=== PATIENT | male | born 1965 | race African-American/Black ===

== ENCOUNTER 2019-11-10 07:43 | Emergency (ER) | payer OTHER ==
[~2019-11-10] VITALS: Ht 175.3 cm; Wt 88.5 kg
[2019-11-10] MEDS ORDERED: ZITHROMAX500 MG PO (11:06)
[2019-11-10] MEDS ORDERED: TUSSI PRES-B L480 ML PO (11:06)
== END 2019-11-10 11:21 | disposition home or self-care (01) ==
LOC: ER 07:43
DX: B33.8 Other specified viral diseases (principal); B96.0 Mycoplasma pneumoniae [M. pneumoniae] as the cause of diseases classified elsewhere

== ENCOUNTER 2020-03-02 16:00 | Emergency (ER) | payer OTHER ==
[~2020-03-02] VITALS: Ht 175.3 cm; Wt 87.1 kg
[~2020-03-02 16:00] MED LIST: TUSSI PRES-B L480 ML PO; ZITHROMAX500 MG PO
== END 2020-03-02 17:54 | disposition home or self-care (01) ==
LOC: ER 16:00 → EDBD 16:01 → ER 16:01
DX: J22 Unspecified acute lower respiratory infection (principal); Z03.818 Encounter for observation for suspected exposure to other biological agents ruled out